=== PATIENT | male | born 1950 | race Caucasian/White ===

== ENCOUNTER 2023-11-21 05:30 | Emergency (ER) | payer BC, SELFPAY ==
[2023-11-21 05:30] VITALS: BMI 30.3
[2023-11-21 05:34] VITALS: BP 155/100
--- NOTE | 2023-11-21 07:36 | ED.GENMED ---
History of Present Illness
General
Chief Complaint: Foreign Body Ingestion
Source: patient
Exam Limitations: none
Time Seen by Provider: 11/21/23 06:04
History of Present Illness
History of Present Illness:
Patient was eating a result not last evening. False [place] like it got stuck in his esophagus. Choked. Since then has had somewhat of a fullness feeling in his anterior neck and upper chest. Is able to swallow without difficulty. No shortness of
breath. More describes it as a tightness feeling like you would feel with a upper respiratory infection.
Past History
Past History
ED Past Medical History: GERD and Hypercholesterolemia
ED Past Surgical History: Orthopedic
Review of Systems
Review of Systems
All Other Systems: Not applicable
Constitutional: Denies fever
Respiratory: Denies trouble breathing
Phy Exam
Physical Exam
Physical Exam:
GENERAL: Alert and oriented in no apparent distress
EYE: Orbits normal.
NECK: Supple, no swelling. No crepitus
ENT: Pharynx without erythema. No drooling or stridor
CARDIAC: Regular rate and rhythm without any obvious murmurs.
LUNGS: Clear breath sounds,normal
ABDOMEN: Soft, without focal tenderness or distention
NEUROLOGICAL: Alert and oriented , grossly non-focal
SKIN: Warm and dry
PSYCH: Normal and appropriate interaction.
Course
Orders/Labs/Results
Orders:
Orders
11/21/23 06:11
Electrocardiogram (*1) Stat
Reason for Study: Other
Other Reason for Exam: chest pain
EKG- Treatment ONCE
CR Chest - 2 Views Urgent
Comment:
Reason For Exam: Choking episode/chest tightness
11/21/23 06:54
Esoph [RF Esophagus-Single Contrast] Urgent
Comment:
Reason For Exam: Not ingestion with foreign body sensation
Vital Signs
Initial and Last Documented VS:
Initial Vital Signs
Temp Pulse Resp BP Pulse Ox
98.9 F 100 20 155/100 94
11/21/23 05:34 11/21/23 05:34 11/21/23 05:34 11/21/23 05:34 11/21/23 05:34
Last Documented Vital Signs
Temp Pulse Resp BP Pulse Ox
98.9 F 100 20 155/100 98
11/21/23 05:34 11/21/23 05:34 11/21/23 05:34 11/21/23 05:34 11/21/23 06:33
*Radiology
Radiology exam reviewed: preliminary read by ED provider (neg. scoliosis) and radiology read reviewed (Esophagram within normal limits. Right lung nodule)
*Pulse Oximetry
Patient hypoxic: no
*EKG
Interpreted by ED Provider?: Yes
Comparison EKG: no comparison EKG present
Heart Rate: 82
Rate: normal
Rhythm: sinus
[place]: normal axis
Interval: normal interval
QRS Pattern: normal QRS
Ischemia: no ischemia
*Critical Care Note
Total Time (30-74mins, 75-104mins- exclusive of procedures): Not Applicable
Update Note
Update Note:
Patient is very clinically nontoxic and in no distress. Clearly no total obstruction of the airway or esophageal issue. No stridor no drooling speech normal. Chest x-ray negative EKG stable. Will do esophagram.
1020.... Esophagram unremarkable. Patient stable. Discharged to follow-up. Copy of x-ray report given to patient for nodule follow-up
ED Attending Note
-
Portions of this chart may have been created with voice recognition software.� Occasional wrong word or��sound alike� substitutions may have occurred due to the inherent limitations of voice recognition software.
Discharge Plan
Departure
Patient Disposition: Home (Routine Discharge)
Date of Disposition: 11/21/23
Time of Disposition: 10:28
Patient with high blood pressure during this ER visit?: Yes
Discharge Problem:
Probable resolved esophageal foreign bod, Right lung nodule
Instructions: Swallowed Objects, Adult (DC), BLOOD PRESSURE
Prescriptions:
No Action
lansoprazole
1 tab PO DAILY
Referrals:
Teresita Stoll CRNP [Family Provider] - Follow up in 2-3 days
Activity Restrictions/Additional Instructions:
Return with increased chest pain shortness of breath fever or trouble swallowing or any other concerning symptoms
Interventions
Interventions:
*Risk Screen - Suicide Last Done: 11/21/23 05:34
*General Assessment Last Done: 11/21/23 05:34
*Neglect/Abuse Screening Last Done: 11/21/23 05:34
ED- Fall Risk Assessment Last Done: 11/21/23 05:34
*ED COVID-19 Vaccine History Last Done: 11/21/23 05:34
PR-Tiqzba-Uqemjnhnvq Assessment Last Done: 11/21/23 06:33
ED- Pulmonary Assessment Last Done: 11/21/23 06:33
ED-EENT Assessment Last Done: 11/21/23 06:33
Discharge Date and Time
Print Language: HONDURAN
[2023-11-21 10:59] VITALS: BP 135/75
== END 2023-11-21 11:00 | disposition home or self-care (01) ==
LOC: EMR 05:30
PROVIDERS: EMERGENCY PHYSICIAN Emergency Medicine; FAMILY PHYSICIAN Nurse Practitioner
DX: R09.89 Other specified symptoms and signs involving the circulatory and respiratory systems (principal); R91.1 Solitary pulmonary nodule; K21.9 Gastro-esophageal reflux disease without esophagitis; E78.00 Pure hypercholesterolemia, unspecified
CPT/HCPCS: 99283; 71046; 74220; 93005